=== PATIENT | female | born 1945 | race Caucasian/White ===

== ENCOUNTER 2023-03-21 02:58 | Outpatient (CLI) | payer MEDICARE, SELFPAY | END 2023-03-21 02:59 | disposition home or self-care (01) | LOC: AMB 03-23 14:40 | PROVIDERS: PCP Family Medicine; Visit Provider Family Medicine | DX: S09.90XA Unspecified injury of head, initial encounter (principal); W18.30XA Fall on same level, unspecified, initial encounter; Y92.039 Unspecified place in apartment as the place of occurrence of the external cause | CPT/HCPCS: A0425; A0429 ==

== ENCOUNTER 2023-03-21 03:23 | Emergency (ER) | payer MEDICARE, SELFPAY ==
[2023-03-21 03:26] VITALS: BP 143/68; PULSE 69; RESP 18; TEMP 36.6; O2SAT 98; BMI 23.4
--- NOTE | 2023-03-21 03:30 | PC.NURSE ---
ice pack to right, upper/back of head.
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
[2023-03-21 04:05] LABS: Basophils Absolute Auto 0.02 K/uL (0.00-0.30); Basophils Percent Auto 0.4 % (0.0-3.0); Eosinophils Absolute Auto 0.07 K/uL (0.00-0.50); Eosinophils Percent Auto 1.3 % (0.0-7.0); Hematocrit 38.9 % (33.0-51.0); Hemoglobin* 12.7 gm/dL (12.0-16.0); Immature Granulocytes Abs Auto 0.01 K/uL (0.00-0.30); Immature Granulocytes Pct Auto 0.2 %; Mean Corpuscular HGB Conc 33 gm/dL (32-36); Mean Corpuscular Hemoglobin 33 pg (26-34); Mean Corpuscular Volume 100 fL (80-100); Monocytes Percent Auto 7.5 % (0.0-11.0); Neutrophils Absolute Auto 2.66 K/uL (1.7-7.0); Neutrophils Percent Auto 48.6 % (42.0-72.0); Platelet Count* 166 K/uL (140-440); RDW Coefficient of Variation % 12.5 % (11.5-15.5); Red Blood Count 3.89 m/uL (4.00-5.20); White Blood Count* 5.47 K/uL (4.50-11.00)
[2023-03-21 04:08] LABS: Slide Review Reflex No
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
[2023-03-21 04:18] LABS: Chloride* 108 mmol/L (96-114); Sodium* 142 mmol/L (135-149)
[2023-03-21 04:20] LABS: Creatinine* 0.7 mg/dL (0.5-1.5); Estimated Glomerular Filt Rate 90 ml/min
[2023-03-21 04:21] LABS: Anion Gap 4 mEq/L (7-15); Blood Urea Nitrogen* 12 mg/dL (7-30); Carbon Dioxide* 30 mmol/L (20-32)
[2023-03-21 04:22] LABS: Calcium* 9.4 mg/dL (8.4-10.6); Ethanol* < 0.01 % (0.01-0.03); Glucose* 98 mg/dL (60-115)
[2023-03-21] MEDS: KETOROLAC 10 MG TABLET PO (04:30)
--- NOTE | 2023-03-21 04:42 | PC.NURSE ---
Pt up to bathroom, was able to urinate but missed hat. Unable to provide urine sample. Pt back to room, warm blankets given and lights dimmed.
[2023-03-21 04:49] VITALS: BP 128/63; PULSE 68; RESP 16; TEMP 36.7; O2SAT 98
[2023-03-21 05:19] VITALS: BP 149/74; PULSE 68; RESP 16; O2SAT 98
[2023-03-21 05:21] LABS: Appearance Urine Clear (Clear); Bilirubin Urine Negative (Negative); Blood Urine Negative (Negative); Color Urine Yellow (Yellow); Glucose Urine Negative (Negative); Ketones Urine Negative (Negative); Leukocyte Esterase Urine 1+ (Negative); Nitrite Urine Negative (Negative); Protein Urine Negative (Negative); Urobilinogen Urine 0.2 (0.2-1.0)
[2023-03-21 05:30] LABS: Amphetamine Screen Urine Negative (Negative); Barbiturate Screen Urine Negative (Negative); Benzodiazepines Screen Urine Negative (Negative); Cannabinoid Screen Urine Negative (Negative); Cocaine Screen Urine Negative (Negative); Methadone Screen Urine Negative (Negative); Methamphetamines Screen Urine Negative (Negative); Opiate Screen Urine Negative (Negative); Oxycodone Screen Urine Negative (Negative); Phencyclidine Screen Urine Negative (Negative); Tricyclic Antidepressant Urine Negative (Negative)
[2023-03-21 05:33] LABS: RBC Urine 0-2 (0-2); WBC Urine 0-2 (0-5)
[2023-03-21 05:34] LABS: Squamous Epithelial Cell Urine Few (None-Few)
== END 2023-03-21 05:53 | disposition home or self-care (01) ==
PROVIDERS: Emergency Provider Family Medicine; PCP Family Medicine
DX: S00.93XA Contusion of unspecified part of head, initial encounter (principal); W01.198A Fall on same level from slipping, tripping and stumbling with subsequent striking against other object, initial encounter
CPT/HCPCS: 36415; 70450; 80048; 80306; 81003; 81015; 82077; 85025; 99284; A9270

== ENCOUNTER 2023-05-31 16:04 | Outpatient (CLI) | payer OTHER, SELFPAY | END 2023-05-31 16:05 | disposition home or self-care (01) | LOC: AMB 06-01 11:39 | PROVIDERS: PCP Family Medicine; Visit Provider Family Medicine | DX: R33.9 Retention of urine, unspecified (principal) | CPT/HCPCS: A0425; A0429 ==

== ENCOUNTER 2023-05-31 16:19 | Emergency (ER) | payer MEDICARE, SELFPAY ==
[2023-05-31 16:25] VITALS: BP 131/76; PULSE 78; RESP 16; TEMP 37.2; O2SAT 98; BMI 23.4
--- NOTE | 2023-05-31 17:49 | ED.GENADULT ---
HPI - General Adult General Chief complaint: Urogenital Problems, Female Stated complaint: weakness Time Seen by Provider: 05/31/23 16:54 History of Present Illness HPI narrative: Lives [facility]. Diagnosed with MS and has trouble with UTI's . Pt this time is being seen for pain in her bladder and unable to urinate. has had 5 cups of coffee and states she still can't pee 78-year-old woman presenting to the emergency department with concern of difficulty with urination. Underlying history multiple sclerosis. She lives at senior apartments at [facility]. History of urinary tract infections. Today she has felt some discomfort a little low/suprapubic abdominal area. And had difficulty urinating. No fever. No nausea. Denies weakness. Related Data Home Medications Medication Instructions Recorded Confirmed atorvastatin 40 mg tablet 40 mg PO DAILY 11/19/22 11/19/22 bupropion HCl 150 mg tablet,12 hr 150 mg PO BID 11/19/22 11/19/22 sustained-release cholecalciferol (vitamin D3) 50 50 mcg PO DAILY 11/19/22 11/19/22 mcg (2,000 unit) tablet citalopram 20 mg tablet 20 mg PO DAILY 11/19/22 11/19/22 gabapentin 300 mg capsule 300 mg PO 3XD 11/19/22 11/19/22 levothyroxine 88 mcg tablet 88 mcg PO DAILY 11/19/22 11/19/22 multivitamin with folic acid 400 1 tab PO DAILY 11/19/22 11/19/22 mcg tablet (Tab-A-Glendy) polyethylene glycol 3350 17 g PO 11/19/22 gram/dose oral powder trazodone 150 mg tablet 150 mg PO QPM 11/19/22 11/19/22 Allergies Allergy/AdvReac Type Severity Reaction Status Date / Time Penicillins Allergy Verified 05/31/23 16:27 Review of Systems Status of ROS: Reports: 6 or more systems reviewed and unremarkable except as noted in History and below [facility] Medical History Multiple sclerosis ?G35 - Multiple sclerosis (ICD-10) Social History Smoking Status: Unknown if ever smoked Do you use any of these nicotine containing products: None Second hand tobacco smoke exposure: No How often do you have a drink containing alcohol: never How often do you have six or more drinks on one occasion: Never AUDIT-C Alcohol total score: 0 Non-prescribed substance use: denies use service: No Exam Narrative: Exam Narrative: Very pleasant. Odor of cigarette smoke. Breathing easily. Skin is warm and dry. Well-perfused peripherally. Moving all extremities out difficulty. Has a walker here with her. Heart in regular rate and rhythm. Abdomen is soft and a little uncomfortable to palpation in the right suprapubic area. I do not appreciate any mass. Const: Vital Signs, click to edit/add: Vital Signs - 24 hr 05/31/23 16:25 Temperature 98.9 F Pulse Rate [Right Pulse Oximeter] 78 Respiratory Rate 16 Blood Pressure [Ri ght Upper Arm] 131/76 Pulse Oximetry 98 Oxygen Delivery Me thod Room Air Documenting provider has reviewed patient's vital signs: yes Course Vital Signs Vital signs: Initial Vital Signs Temperature 98.9 F 05/31/23 16:25 Temperature Source Temporal Artery Scan 05/31/23 16:25 Pulse Rate 78 05/31/23 16:25 Pulse Rhythm Regular 05/31/23 16:25 Pulse Strength 3+ Normal 05/31/23 16:25 Respiratory Rate 16 05/31/23 16:25 Blood Pressure 131/76 05/31/23 16:25 Blood Pressure Mean 94 05/31/23 16:25 Blood Pressure Position Sitting 05/31/23 16:25 Pulse Oximetry 98 05/31/23 16:25 Oxygen Delivery Method Room Air 05/31/23 16:25 Vital Signs Temperature 98.9 F 05/31/23 16:25 Pulse Rate 78 05/31/23 16:25 Respiratory Rate 16 05/31/23 16:25 Blood Pressure 131/76 05/31/23 16:25 Pulse Oximetry 98 05/31/23 16:25 Oxygen Delivery Method Room Air 05/31/23 16:25 Temperature 98.9 F 05/31/23 16:25 Pulse Rate 78 05/31/23 16:25 Respiratory Rate 16 05/31/23 16:25 Blood Pressure 131/76 05/31/23 16:25 Pulse Oximetry 98 05/31/23 16:25 Oxygen Delivery Method Room Air 05/31/23 16:25 Medical Decision Making MDM Narrative Medical decision making narrative: Prior to seeing Ms. Sorto I had requested obtain urinalysis and bladder scan. Had bladder scanned for around 280 mL but did did actually managed to void. Admittedly feels more comfortable. Urinalysis shows 2+ leukocyte esterase and 25-50 white cells on microscopic. No nitrite. Noted to be cloudy. I do not have prior for comparison. No sensitivities available at this time. Does not have any other concerning symptoms related to MS that I think would necessitate more aggressive treatment beyond oral antibiotics. Culture results pending. See patient discharge plan Lab Data Lab results reviewed: Yes I reviewed the patient's lab results Labs: Lab Results 05/31/23 Range/Units 18:07 Urine Color Yellow (Yellow) Urine Appearance Cloudy A (Clear) Urine pH 6.5 (5.0-8.5) Ur Specific [place] 1.015 (1.000-1.030) Urine Protein Negative (Negative) Urine Glucose (UA) Negative (Negative) Urine Ketones Negative (Negative) Urine Blood Trace-intact A (Negative) Urine Nitrite Negative (Negative) Urine Bilirubin Negative (Negative) Urine Urobilinogen 0.2 (0.2-1.0) Ur Leukocyte Esterase 2+ A (Negative) Urine RBC 0-2 (0-2) Urine WBC 25-50 A (0-5) Ur Squamous Epith Cells Few (None-Few) Urine Bacteria None (None) Discharge Plan Discharge Clinical Impression: Urinary retention, Cystitis Patient Disposition: Home, Self-Care Condition: Improved Additional Instructions: Focus on hydration. Be seen for increasing weakness, repeated vomiting, fever, increasing pain such that you think you are retaining much more urine. Urine culture will be pending here. Meanwhile prescribing cephalexin from [facility]. Prescriptions: No Action atorvastatin 40 mg tablet 40 mg PO DAILY bupropion HCl 150 mg tablet sustained-release 12 hr 150 mg PO BID levothyroxine 88 mcg tablet 88 mcg PO DAILY citalopram 20 mg tablet 20 mg PO DAILY trazodone 150 mg tablet 150 mg PO QPM gabapentin 300 mg capsule 300 mg PO 3XD polyethylene glycol 3350 17 gram/dose powder PO cholecalciferol (vitamin D3) 50 mcg (2,000 unit) tablet 50 mcg PO DAILY multivitamin with folic acid [Tab-A-Glendy] 400 mcg tablet 1 tab PO DAILY Follow Up/Referrals: Muna Menchaca MD [Primary Care Provider] - Stand Alone Forms: [employer] Info Instructions
[2023-05-31 18:15] LABS: Appearance Urine Cloudy (Clear); Bilirubin Urine Negative (Negative); Blood Urine Trace-intact (Negative); Color Urine Yellow (Yellow); Glucose Urine Negative (Negative); Ketones Urine Negative (Negative); Leukocyte Esterase Urine 2+ (Negative); Nitrite Urine Negative (Negative); Protein Urine Negative (Negative); Specific Gravity Urine 1.015 (1.000-1.030); Urobilinogen Urine 0.2 (0.2-1.0); pH Urine 6.5 (5.0-8.5)
[2023-05-31 18:26] LABS: RBC Urine 0-2 (0-2); Squamous Epithelial Cell Urine Few (None-Few); WBC Urine 25-50 (0-5)
== END 2023-05-31 18:59 | disposition home or self-care (01) ==
PROVIDERS: Emergency Provider Family Medicine; PCP Family Medicine
DX: R33.9 Retention of urine, unspecified (principal); N30.90 Cystitis, unspecified without hematuria
CPT/HCPCS: 51798; 81001; 87086; 99283; 99284